=== PATIENT | male | born 1970 | race Caucasian/White ===

== ENCOUNTER 2021-05-13 16:29 | Outpatient (CLI) | payer BC, SELFPAY ==
--- NOTE | ~2021-05-13 | CT_ITS ---
EXAMINATION: CT abdomen pelvis wo con DATE: 05/13/2021 17:11 INDICATION: Hematuria TECHNIQUE: Computed tomography (CT) of the abdomen and pelvis was performed without intravenous contr ast. Automated exposure control and iterative reconstruction technique were employed. Exam dose: 179 9.67 mGy-cm total exam DLP. COMPARISON: None. FINDINGS: The lung bases are clear of infiltrate or consolidation. Normal heart size. No pericardial or pleural effusion. The liver, gallbladder, spleen, pancreas, bile ducts, pancreatic duct, and adrenal glands and kidneys are unremarkable on this limited examination given the loss of soft tissue detail due to morbid obes ity and the lack of intravenous contrast material. The urinary bladder is unremarkable. Mild prostate calcification. Diverticulosis of the colon. No apparent CT evidence of diverticulitis. No bowel obstruction or intra peritoneal free air is evident. No CT evidence of appendicitis is noted. Diffuse idiopathic skeletal hyperostosis of the thoracic spine. Severe degenerative disc disease at L5-S1 and mild to moderate degenerative disc disease at the remai jennifer lumbar interspaces. No suspicious osteolytic or osteoblastic lesions are noted.. IMPRESSION: Limited examination due to morbid obesity and lack of intravenous contrast material Diverticulosis of the colon Degenerative changes of the thoracic and lumbar spine Reviewed, dictated and finalized at [facility]. Reviewed, dictated and finalized at location B.
== END 2021-05-13 16:30 | disposition home or self-care (01) ==
LOC: ANHIMG 16:37
PROVIDERS: PCP Internal Medicine; Visit Provider Nurse Practitioner
DX: R31.9 Hematuria, unspecified (principal); K57.30 Diverticulosis of large intestine without perforation or abscess without bleeding; M51.34 Other intervertebral disc degeneration, thoracic region; M51.36 Other intervertebral disc degeneration, lumbar region
CPT/HCPCS: 74176

== ENCOUNTER 2021-10-07 14:36 | Outpatient (CLI) | payer BC, SELFPAY ==
--- NOTE | 2021-10-07 15:27 | ECG_ITS ---
Measurements Intervals [place] Rate: 80 P: AK: 0 QRS: 23 QRSD: 87 T: 54 QT: 336 QTc: 388 Interpretive Statements ATRIAL FLUTTER NONSPECIFIC ST ABNORMALITY- LATERAL LEADS ABNORMAL ECG Electronically Signed On 10-07-2021 15:48:20 NURSING CLINICAL DIRECTOR by Juan Hernández D.O.
[2021-10-07 15:42] LABS: Basophils Absolute Auto 0.1 K/mm3 (0.0-0.1); Basophils Percent Auto 0.7 % (0.2-1.2); Eosinophils Percent Auto 0.4 % (0-4.4); Hematocrit 44.8 % (42.0-52.0); Hemoglobin 16.1 g/dL (14.0-18.0); Immature Granulocyte Absolute 0.05 K/mm3 (0.00-0.031); Immature Granulocyte Percent A 0.5 % (0-0.5); Lymphocytes Absolute Auto 2.53 K/mm3 (0.9-3.2); Lymphocytes Percent Auto 27.7 % (18.3-44.2); Mean Corpuscular HGB Conc 35.9 g/dl (32-36); Mean Corpuscular Hemoglobin 31.5 pg (26-34); Mean Corpuscular Volume 87.7 fl (80-100); Monocytes Absolute Auto 0.7 K/mm3 (0.1-0.6); Monocytes Percent Auto 7.2 % (2.6-8.5); Neutrophils Absolute Auto 5.8 K/mm3 (1.3-6.7); Neutrophils Percent Auto 63.5 % (45.5-73.1); Platelet Count Result 286 k/mm3 (150-375); Red Blood Count 5.11 M/mm3 (4.6-6.20); Red Cell Distribution Width 12.1 % (11.5-14.5); White Blood Count 9.1 K/mm3 (4.5-10.0)
[2021-10-07 15:44] LABS: Alanine Aminotransferase 36 U/L (4-50); Albumin Level 4.5 g/dL (3.5-5.1); Alkaline Phosphatase 99 U/L (38-126); Anion Gap 15 mmol/L (8-16); Aspartate Amino Transferase 35 U/L (17-59); Bilirubin,Total 0.8 mg/dL (0.2-1.3); Blood Urea Nitrogen 11 mg/dL (9-20); Calcium 9.4 mg/dL (8.4-10.2); Carbon Dioxide 19 mmol/L (22-30); Chloride 104 mmol/L (98-107); Estimated Glomerular Filt Rate > 60; Glucose 99 mg/dL (65-110); Potassium 4.1 mmol/L (3.4-5.0); Sodium 138 mmol/L (137-145)
== END 2021-10-07 14:37 | disposition home or self-care (01) ==
PROVIDERS: PCP Internal Medicine; Visit Provider Nurse Practitioner
DX: Z01.818 Encounter for other preprocedural examination (principal); R94.31 Abnormal electrocardiogram [ECG] [EKG]
CPT/HCPCS: 36415; 80053; 85025; 93005

== ENCOUNTER 2022-02-28 10:20 | Outpatient (CLI) | payer BC, SELFPAY ==
[2022-02-28 11:13] LABS: Basophils Absolute Auto 0.1 K/mm3 (0.0-0.1); Basophils Percent Auto 0.7 % (0.2-1.2); Eosinophils Absolute Auto 0.1 K/mm3 (0-0.3); Eosinophils Percent Auto 0.6 % (0-4.4); Hematocrit 39.4 % (42.0-52.0); Immature Granulocyte Percent A 0.7 % (0-0.5); Lymphocytes Percent Auto 14.2 % (18.3-44.2); Mean Corpuscular HGB Conc 35.5 g/dl (32-36); Mean Corpuscular Hemoglobin 31.4 pg (26-34); Mean Corpuscular Volume 88.3 fl (80-100); Mean Platelet Volume 9.4 fl (7.4-10.4); Monocytes Absolute Auto 1.5 K/mm3 (0.1-0.6); Neutrophils Absolute Auto 9.8 K/mm3 (1.3-6.7); Neutrophils Percent Auto 72.8 % (45.5-73.1); Platelet Count Result 451 k/mm3 (150-375); Red Blood Count 4.46 M/mm3 (4.6-6.20); Red Cell Distribution Width 12.2 % (11.5-14.5); White Blood Count 13.4 K/mm3 (4.5-10.0)
[2022-02-28 11:26] LABS: Alanine Aminotransferase 24 U/L (4-50); Albumin Level 3.9 g/dL (3.5-5.1); Alkaline Phosphatase 80 U/L (38-126); Anion Gap 10 mmol/L (8-16); Aspartate Amino Transferase 32 U/L (17-59); Bilirubin,Total 1.1 mg/dL (0.2-1.3); Blood Urea Nitrogen 9 mg/dL (9-20); Calcium 8.8 mg/dL (8.4-10.2); Carbon Dioxide 26 mmol/L (22-30); Chloride 98 mmol/L (98-107); Estimated Glomerular Filt Rate > 60; Glucose 153 mg/dL (65-110); Magnesium 2.2 mg/dL (1.6-2.3); Potassium 3.5 mmol/L (3.4-5.0); Sodium 134 mmol/L (137-145)
[2022-02-28 12:56] LABS: Hemoglobin A1C 5.8 % (<5.7)
== END 2022-02-28 10:21 | disposition home or self-care (01) ==
LOC: ANHLAB 10:21
PROVIDERS: PCP Internal Medicine; Visit Provider Nurse Practitioner
DX: R25.2 Cramp and spasm (principal); R73.9 Hyperglycemia, unspecified
CPT/HCPCS: 36415; 80053; 83036; 83735; 84443; 85025

== ENCOUNTER 2022-03-01 06:37 | Outpatient (CLI) | payer BC, SELFPAY ==
[2022-03-01 07:16] LABS: Add Urine Microscopic? YES; Appearance Urine Cloudy (Clear); Bacteria Urine Trace /hpf; Bilirubin Urine Negative (Negative); Blood Urine Negative (Negative); Color Urine Amber (Yellow); Glucose Urine UA Negative (Negative); Ketones Urine Trace mg/dL (Negative); Leukocyte Esterase Ur 1+ LEU/UL (Negative); Mucus Urine Few /lpf; Nitrate Urine Negative (Negative); Protein Urine 1+ mg/dL (Negative); Specific Grav Ur 1.024 (1.001-1.035); Squamous Epithelial Cell Urine Few /hpf (Few); WBC Urine 31-50 /hpf
== END 2022-03-01 06:38 | disposition home or self-care (01) ==
PROVIDERS: PCP Internal Medicine; Visit Provider Nurse Practitioner
DX: R34 Anuria and oliguria (principal)
CPT/HCPCS: 81001; 87077; 87086; 87088

== ENCOUNTER 2022-03-05 17:09 | Emergency (ER) | payer BC, SELFPAY ==
--- NOTE | ~2022-03-05 | CT_ITS ---
EXAMINATION: CT brain wo con DATE: 03/05/2022 19:40 INDICATION: headache TECHNIQUE: Computed tomography (CT) of the head was performed without intravenous contrast. The mA wa s adjusted according to patient size. Iterative reconstruction technique was employed. The dose-lengt h product was 605.33 mGy-cm. COMPARISON: None FINDINGS: No acute intracranial hemorrhage or extra-axial fluid collection. No hydrocephalus, mass, or herniation. No acute ischemic infarct. Unremarkable dural venous sinus attenuation. No acute osseous abnormality. Retention cysts/polyps in the sphenoid and bilateral maxillary sinuses, otherwise the aerated spaces are clear. IMPRESSION: No acute intracranial process. Reviewed, dictated and finalized at location [facility].
--- NOTE | ~2022-03-05 | XR_ITS ---
EXAMINATION: XR chest 1V Exam Date/Time: 03/05/2022 19:35 CDT CLINICAL HISTORY: dyspnea Comparison: 03/08/12. RESULT: Lines, tubes, and devices: None. Lungs and pleura: Clear. Cardiomediastinal silhouette: Stable cardiomediastinal silhouette. Other: No acute osseous or upper abdominal finding. IMPRESSION: No acute cardiopulmonary process Reviewed, dictated and finalized at location K.
--- NOTE | ~2022-03-05 | CT_ITS ---
EXAMINATION: CTA chest PE abdomen pel DATE: 03/05/2022 21:14 INDICATION: elevated d dimer, sepsis without a source TECHNIQUE: Computed tomography angiography (CTA) of the chest abdomen and pelvis was performed with 1 00 mL Omnipaque-350 intravenous contrast timed to evaluate the pulmonary arteries. Coronal maximum in tensity projection 3D-reconstructions were created by the technologist. The dose-length product (DLP) was 2606.17 mGy-cm. Automated exposure control and iterative reconstruction technique were employed. COMPARISON: 05/13/21. FINDINGS: CHEST: Study quality: Degraded by late contrast bolus, beam hardening, and motion, especially in the left lo wer lobe, such that subsegmental and non-occlusive segmental emboli could be missed. Pulmonary arteries: No pulmonary emboli detected. Thoracic aorta: Normal. Lung parenchyma and airways: Clear. Thoracic inlet, axillae and chest wall: Unremarkable. Mediastinum: Normal. Heart and pericardium: Normal. Coronary artery calcifications: Absent. Pleura: Unremarkable. Bones: No acute osseous finding. ABDOMEN/PELVIS: Liver: Normal. Biliary/Gallbladder: Gallbladder is normal. No bile duct dilation. Spleen: Normal. Pancreas: No mass or duct dilation. Adrenals:No mass. Kidneys: No mass, stone, or hydronephrosis. GI tract: No small or large bowel dilation. Appendix not visualized. Mesentery/Peritoneum: No ascites, mass, or free air. Retroperitoneum: No mass. Pelvis: Pelvic organs are within normal limits. Soft Tissues: Soft tissues and body wall unremarkable. Bones: No acute osseous finding. IMPRESSION: Limited examination as described above, within those constraints no central or occlusive segmental em boli detected. No acute process detected in the chest, abdomen, or pelvis. Reviewed, dictated and finalized at location K. IMPRESSION: Limited examination as described above, within those constraints no central or occlusive segmental emboli detected. No acute process detected in the chest, ab domen, or pelvis.
[2022-03-05 17:26] VITALS: BP 159/71; PULSE 106; RESP 20; TEMP 36.4; O2SAT 98
--- NOTE | 2022-03-05 19:11 | ED.GENADULT ---
HPI - General Adult General Chief complaint: Unspecified Stated complaint: headache, fever leg pain Time Seen by Provider: 03/05/22 19:10 Source: patient and family Mode of arrival: ambulatory Limitations: no limitations History of Present Illness HPI narrative: The patient is a 51-year-old male with a history of gastric sleeve in October 2021, over 100 pound weight loss in that time, hypertension, chronic anticoagulation, presenting to the emergency department for evaluation of numerous symptoms. Patient states he began feeling unwell 2 weeks ago. Patient reports he has had daily, intermittent headaches which at times are sharp in nature and can begin suddenly. Currently, headache is aching in nature and began in his lower head radiating to the forehead. Patient reports initial blurry vision which is since resolved. Reports nausea without vomiting. Denies facial droop, difficulty with speech. No focal weakness or numbness in the upper or lower extremities, no dizziness, patient has had no difficulty with ambulation. Patient states he has been taking Tylenol every 6 hours for headache pain and low-grade fever. Patient states he has had fever up to 101 Fahrenheit for which she has been taking Tylenol. Patient reports myalgias, with diffuse muscle aches. He reports muscle cramping. He denies current chest pain, abdominal pain. At times he does report shortness of breath that worsens with exertion. He denies lower extremity swelling, redness. He has been compliant with his anticoagulation. He denies pleuritic pain. Denies recent long car or air travel. Denies recent surgery or immobility. Patient denies diarrhea. He reports that initially he was having some urinary hesitation for which she was diagnosed with urinary tract infection and placed on antibiotics at his primary care physician's office. Patient states that urination has improved and he denies any current dysuria or hematuria. Patient's publications writer office told him to discontinue his chlorthalidone given his symptoms. Other than that, no recent medication changes aside from the antibiotic. Patient reports history of symptomatic COVID infection in 2019 for which she did not require hospitalization. He denies recent sick contacts. He reports mild rhinorrhea, denies any significant congestion, sore throat. Related Data Home Medications Medication Instructions Recorded Confirmed cetirizine 10 mg tablet 10 mg PO DAILY PRN 02/28/22 02/28/22 chlorthalidone 25 mg tablet 25 mg PO DAILY 02/28/22 02/28/22 metoprolol tartrate 37.5 mg tablet 37.5 mg PO BID 02/28/22 02/28/22 rivaroxaban 20 mg tablet 20 mg PO DAILY 02/28/22 02/28/22 Allergies Allergy/AdvReac Type Severity Reaction Status Date / Time No Known Allergies Allergy Verified 11/20/20 17:21 Review of Systems Review of Systems: CONSTITUTIONAL: Reports headache, fever, chills EYES: Reports blurry vision at times, denies eye pain ENT: Reports mild rhinorrhea, congestion, denies sore throat or otalgia CARDIOVASCULAR: Denies chest pain, palpitations, or edema. RESPIRATORY: Reports dry cough, reports shortness of breath with exertion, denies hemoptysis GASTROINTESTINAL: Denies abdominal pain, reports nausea without vomiting or diarrhea GENITOURINARY: Denies dysuria or hematuria. SKIN: Denies rash or itching. MUSCULOSKELETAL: Reports myalgias without focal back pain or joint pain NEUROLOGIC: Reports headache without numbness or weakness PMF Past Medical History Medical History Allergies Surgical History Surgical History H/O gastric sleeve 10/16/2021 History of hernia repair x2 2004 History of vasectomy Family History Family History Father Diabetes mellitus Mother Rheumatoid arthritis Grandparent Carcinoma of colon Grandparent Lung can
--- NOTE | 2022-03-05 19:14 | ECG_ITS ---
Measurements Intervals [place] Rate: 98 P: -24 NV: 136 QRS: 16 QRSD: 102 T: -25 QT: 334 QTc: 427 Interpretive Statements SINUS RHYTHM ST-T WAVE ABNORMALITY IN ANTEROLATERAL LEADS- CONSIDER ISCHEMIA BASELINE ARTIFACT- I, II, AVR, AVL, AVF, V3 ABNORMAL ECG Electronically Signed On 03-06-2022 6:31:05 CDT by Juan Hernández D.O.
[2022-03-05 19:43] LABS: Basophils Absolute Auto 0.1 K/mm3 (0.0-0.1); Basophils Percent Auto 0.7 % (0.2-1.2); Eosinophils Absolute Auto 0.1 K/mm3 (0-0.3); Eosinophils Percent Auto 1.1 % (0-4.4); Hematocrit 41.8 % (42.0-52.0); Hemoglobin 14.6 g/dL (14.0-18.0); Immature Granulocyte Absolute 0.24 K/mm3 (0.00-0.031); Immature Granulocyte Percent A 1.8 % (0-0.5); Lymphocytes Percent Auto 14.4 % (18.3-44.2); Mean Corpuscular HGB Conc 34.9 g/dl (32-36); Mean Corpuscular Hemoglobin 31.3 pg (26-34); Mean Corpuscular Volume 89.7 fl (80-100); Mean Platelet Volume 8.8 fl (7.4-10.4); Monocytes Absolute Auto 1.1 K/mm3 (0.1-0.6); Monocytes Percent Auto 8.5 % (2.6-8.5); Neutrophils Absolute Auto 9.7 K/mm3 (1.3-6.7); Neutrophils Percent Auto 73.5 % (45.5-73.1); Platelet Count Result 535 k/mm3 (150-375); Red Blood Count 4.66 M/mm3 (4.6-6.20); Red Cell Distribution Width 12.4 % (11.5-14.5); White Blood Count 13.2 K/mm3 (4.5-10.0)
[2022-03-05 19:52] LABS: Alanine Aminotransferase 34 U/L (4-50); Albumin Level 3.7 g/dL (3.5-5.1); Alkaline Phosphatase 98 U/L (38-126); Anion Gap 11 mmol/L (8-16); Aspartate Amino Transferase 49 U/L (17-59); Bilirubin,Total 0.6 mg/dL (0.2-1.3); Blood Urea Nitrogen 10 mg/dL (9-20); Calcium 8.9 mg/dL (8.4-10.2); Carbon Dioxide 25 mmol/L (22-30); Chloride 99 mmol/L (98-107); Estimated CRCL calculation 225 ml/min; Estimated Glomerular Filt Rate > 60; Glucose 151 mg/dL (65-110); Potassium 3.9 mmol/L (3.4-5.0); Sodium 135 mmol/L (137-145)
[2022-03-05 19:54] LABS: INR 1.8
[2022-03-05 19:55] LABS: Partial Thromboplastin Time 45.1 SECONDS (22.3-36.8)
[2022-03-05 19:58] LABS: Creatine Kinase 29 U/L (55-170)
[2022-03-05 20:11] LABS: D Dimer 0.95 ug/mL (<0.48)
[2022-03-05 20:12] LABS: Erythrocyte Sedimentation Rate 42 mm/hr (0-20)
[2022-03-05 20:20] LABS: CRP 25.4 mg/dL (<1.0); NT Pro B Type Natriuretic Pept 376 pg/mL (5-100); Troponin I < 0.012 ng/mL (0.000-0.034)
[2022-03-05] MEDS: ONDANSETRON INJ 4 MG/2 ML VIAL IV PUSH (20:42)
[2022-03-05] MEDS: METOCLOPRAMIDE HCL INJ 10 MG/2 ML VIAL 5 MG IV PUSH (20:43)
[2022-03-05] MEDS: SODIUM CHLORIDE 0.9% IV 1,000 ML 999 ML IV CONT (20:44)
[2022-03-05 21:02] LABS: Appearance Urine Clear (Clear); Bilirubin Urine 1+ (Negative); Blood Urine Negative (Negative); Color Urine Yellow (Yellow); Glucose Urine UA Negative (Negative); Ketones Urine Trace mg/dL (Negative); Leukocyte Esterase Ur Negative LEU/UL (Negative); Nitrate Urine Negative (Negative); Protein Urine Trace mg/dL (Negative); Urobilinogen Urine >=8.0 mg/dL (<2.0)
[2022-03-05 21:09] LABS: Lactic Acid Reflex 1.2 mmol/L (0.7-2.0)
[2022-03-05 21:10] LABS: Mucus Urine Moderate /lpf; Squamous Epithelial Cell Urine Moderate /hpf (Few); WBC Urine 0-3 /hpf
[2022-03-05 21:12] LABS: Add Urine Microscopic? YES
[2022-03-05 22:43] LABS: SARS-CoV-2 RNA PCR Negative
[2022-03-05 23:31] LABS: Troponin I < 0.012 ng/mL (0.000-0.034)
[2022-03-06 00:06] LABS: Monoscreen Negative (Negative); Negative Monotest Control Negative (Negative); Positive Monotest Control Positive (Positive)
== END 2022-03-06 00:04 | disposition home or self-care (01) ==
PROVIDERS: Emergency Provider Emergency Medicine; PCP Internal Medicine
DX: R51.9 Headache, unspecified (principal); M79.10 Myalgia, unspecified site; R79.82 Elevated C-reactive protein (CRP); Z20.822 Contact with and (suspected) exposure to COVID-19; I10 Essential (primary) hypertension; Z98.84 Bariatric surgery status; Z86.16 Personal history of COVID-19; Z79.01 Long term (current) use of anticoagulants; R94.31 Abnormal electrocardiogram [ECG] [EKG]
CPT/HCPCS: 36415; 70450; 71045; 71275; 74177; 80053; 81001; 82550; 83605; 83880; 84443; 84484; 85025; 85380; 85610; 85652; 85730; 86140; 86308; 87040; 87081; 87804; 87880; 93005; 96361; 96374; 96375; 99284; C9803; J1100; J2405; J2765; J7030; Q9967; U0003; U0005

== ENCOUNTER 2022-03-15 04:20 | Emergency (ER) | payer BC, SELFPAY ==
--- NOTE | ~2022-03-15 | XR_ITS ---
XR chest 1V portable DATE: 03/15/2022 05:14 INDICATION: Chest pressure TECHNIQUE: Portable upright AP chest on 03/15/2022 at 0509 hours COMPARISON: 03/2022 CTA chest FINDINGS: Normal heart size. No hilar or mediastinal enlargement. No pulmonary infiltrate or consolid ation, pleural effusion or pulmonary vascular congestion or pneumothorax. IMPRESSION: No active cardiopulmonary disease Reviewed, dictated and finalized at location A.
--- NOTE | 2022-03-15 04:27 | ECG_ITS ---
Measurements Intervals [place] Rate: 79 P: 95 WV: 146 QRS: 26 QRSD: 89 T: -23 QT: 334 QTc: 383 Interpretive Statements SINUS RHYTHM VENTRICULAR PREMATURE COMPLEXES BORDERLINE ST-T WAVE ABNORMALITY- ANTEROLAT/INF LEADS BASELINE ARTIFACT- I, II, AVR BORDERLINE ECG Electronically Signed On 03-15-2022 6:44:26 CDT by Juan Hernández D.O.
[2022-03-15 04:34] VITALS: BP 154/95; PULSE 79; RESP 18; TEMP 35.7; O2SAT 100
[2022-03-15 05:00] LABS: Basophils Absolute Auto 0.1 K/mm3 (0.0-0.1); Eosinophils Absolute Auto 0.1 K/mm3 (0-0.3); Eosinophils Percent Auto 1.2 % (0-4.4); Hematocrit 38.4 % (42.0-52.0); Hemoglobin 12.9 g/dL (14.0-18.0); Immature Granulocyte Absolute 0.13 K/mm3 (0.00-0.031); Immature Granulocyte Percent A 1.4 % (0-0.5); Lymphocytes Percent Auto 31.5 % (18.3-44.2); Mean Corpuscular HGB Conc 33.6 g/dl (32-36); Mean Corpuscular Hemoglobin 30.5 pg (26-34); Mean Corpuscular Volume 90.8 fl (80-100); Monocytes Absolute Auto 0.8 K/mm3 (0.1-0.6); Monocytes Percent Auto 8.6 % (2.6-8.5); Neutrophils Absolute Auto 5.4 K/mm3 (1.3-6.7); Neutrophils Percent Auto 56.3 % (45.5-73.1); Platelet Count Result 417 k/mm3 (150-375); Red Blood Count 4.23 M/mm3 (4.6-6.20); Red Cell Distribution Width 12.9 % (11.5-14.5); White Blood Count 9.5 K/mm3 (4.5-10.0)
[2022-03-15 05:10] LABS: Anion Gap 7 mmol/L (8-16); Blood Urea Nitrogen 11 mg/dL (9-20); Calcium 8.7 mg/dL (8.4-10.2); Carbon Dioxide 25 mmol/L (22-30); Chloride 105 mmol/L (98-107); Estimated CRCL calculation 265 ml/min; Estimated Glomerular Filt Rate > 60; Glucose 130 mg/dL (65-110); Potassium 3.7 mmol/L (3.4-5.0); Sodium 137 mmol/L (137-145)
[2022-03-15 05:22] LABS: Troponin I < 0.012 ng/mL (0.000-0.034)
--- NOTE | 2022-03-15 05:33 | PC.NURSE ---
Called lab to add magnesium on, spoke with Brissa.
[2022-03-15 05:44] LABS: Magnesium 2.3 mg/dL (1.6-2.3)
--- NOTE | 2022-03-15 05:52 | ED.ARRPALP ---
HPI - Arrhythmia/Palpitations General Chief Complaint: Arrhythmia/Palpitations Stated Complaint: chest pressure/palpitations Time Seen by Provider: 03/15/22 04:51 History of Present Illness HPI narrative: 51-year-old male with history of atrial fibrillation requiring cardioversion presents here with sensation of palpitations, he noticed on his watch that his heart rate seem to be fluctuating, so he came in here. Endorses a feeling of chest tightness/fluttering, no real chest pain, difficulty breathing, he has had a headache for which he was seen recently but denies any other symptoms today. No nausea or vomiting, no diaphoresis. Related Data Home Medications Medication Instructions Recorded Confirmed cetirizine 10 mg tablet 10 mg PO DAILY PRN 02/28/22 03/11/22 metoprolol tartrate 37.5 mg tablet 37.5 mg PO BID 02/28/22 03/11/22 rivaroxaban 20 mg tablet 20 mg PO DAILY 02/28/22 03/11/22 Allergies Allergy/AdvReac Type Severity Reaction Status Date / Time No Known Allergies Allergy Verified 03/15/22 04:37 Review of Systems Review of Systems: CONST: No fever. HEENT: No sore throat C/V: Palpitations RESP: No difficulty breathing GI: No nausea, vomiting : No dysuria. M/S: No lower extremity edema SKIN: No rash. NEURO: [No headache or focal numbness or weakness] PSYCH: [No depression] [facility] Past Medical History Medical History Allergies Atrial fibrillation Surgical History Surgical History H/O gastric sleeve 10/16/2021 History of hernia repair x2 1989, 2004 History of vasectomy Family History Family History Father Diabetes mellitus Mother Rheumatoid arthritis Grandparent Carcinoma of colon Grandparent Lung cancer Grandparent Leukemia Cerebrovascular accident Heart attack Sibling Diabetes mellitus Social History Social History Smoking status: Never smoker Alcohol intake: current Drinks per week: 2 Substance use: never Exam Narrative: EXAMINATION OF ORGAN SYSTEMS/BODY AREAS: Constitutional: Vital signs per nursing GENERAL:[No acute distress, non-toxic appearing.] HEAD: Normal with no signs of head trauma. EYES: EOMI, conjunctiva normal ENT: Hearing grossly intact LUNGS: Nonlabored breathing. HEART: [Regular rate and rhythm] with occasional PVCs ABD: [Soft], nondistended EXT: Normal range of motion, no swelling SKIN: [No rashes or lesions.] NEURO: [Alert and oriented x 3. No gross focal sensory or strength deficits.] PSYCH: Normal affect Course Course Emergency Course: 51-year-old male history of A. fib presenting with sensation of palpitations, exam here normal cardiopulmonary exam, EKG - 12-Lead: Performed at 0431. Interpreted by me. [Sinus rhythm] with frequent PVCs. Rate [79]. [Normal] axis. MO-interval 146. QRS duration 89. QTc [normal]. [No ST segment elevation or depression]. [T-wave normal]. Impression: No EKG evidence of acute ischemia or dysrhythmia. I will obtain basic labs to check electrolytes, these are normal, he is continue to be in normal sinus here on monitors with PVCs. Patient is already on anticoagulation and metoprolol, I therefore do not feel any further prescriptions needed at this time, he should follow-up with his armored vehicle officer and return for any further issues. Vital Signs Vital signs: Vital Signs Temperature 96.3 F L 03/15/22 04:34 Pulse Rate 79 03/15/22 04:34 Respiratory Rate 18 03/15/22 04:34 Blood Pressure 154/95 H 03/15/22 04:34 Pulse Oximetry 100 03/15/22 04:34 Temperature 96.3 F L 03/15/22 04:34 Pulse Rate 79 03/15/22 04:34 Respiratory Rate 18 03/15/22 04:34 Blood Pressure 154/95 H 03/15/22 04:34 Pulse Oximetry 100 03/15/22 04:34 MDM - Arrhythmia/Palpitations Lab Data Result diagrams: 03/02
[2022-03-15 06:15] VITALS: BP 135/68; PULSE 64; RESP 14; O2SAT 100
== END 2022-03-15 06:16 | disposition home or self-care (01) ==
PROVIDERS: Emergency Provider Emergency Medicine; PCP Internal Medicine
DX: R00.2 Palpitations (principal); I49.3 Ventricular premature depolarization; I48.91 Unspecified atrial fibrillation; Z98.84 Bariatric surgery status; Z79.01 Long term (current) use of anticoagulants; R94.31 Abnormal electrocardiogram [ECG] [EKG]
CPT/HCPCS: 36415; 71045; 80048; 83735; 84484; 85025; 93005; 99284

== ENCOUNTER 2022-03-19 10:34 | Outpatient (CLI) | payer BC, SELFPAY ==
--- NOTE | ~2022-03-19 | MR_ITS ---
EXAMINATION: MR brain/brain stem wo/w con DATE: 03/19/2022 11:51 INDICATION: Headache, unspecified. TECHNIQUE: Magnetic resonance imaging (MRI) of the brain and brainstem was performed without and with 20 mL MultiHance intravenous contrast. COMPARISON: Head CT 03/05/2022 FINDINGS: There are scattered areas of nonspecific increased T2-weighted signal intensity in the cere bral white matter and alma. There is no intracranial hemorrhage, acute infarction, or abnormal intrac ranial mass lesion. The ventricles are normal in size. There is mild mucosal thickening in the maxill ken sinuses. The mastoid air cells are normal. There are no pathologically enlarged lymph nodes. IMPRESSION: 1. Mild nonspecific cerebral white matter disease and pontine disease, which likely represents chroni c small vessel ischemic disease. Reviewed, dictated and finalized at location B. IMPRESSION: 1. Mild nonspecific cerebral white matter disease and pontine disease, which katheryn peterson represents chronic small vessel ischemic disease.
== END 2022-03-19 10:35 | disposition home or self-care (01) ==
PROVIDERS: PCP Internal Medicine; Visit Provider Internal Medicine
DX: H02.401 Unspecified ptosis of right eyelid (principal); R50.9 Fever, unspecified; R51.9 Headache, unspecified; R93.0 Abnormal findings on diagnostic imaging of skull and head, not elsewhere classified
CPT/HCPCS: 70553; A9577

== ENCOUNTER 2022-04-05 07:00 | Outpatient (CLI) | payer BC, SELFPAY ==
[2022-04-05 07:56] LABS: Appearance Urine Clear (Clear); Bilirubin Urine Negative (Negative); Blood Urine Negative (Negative); Color Urine Yellow (Yellow); Glucose Urine UA Negative (Negative); Ketones Urine Negative (Negative); Leukocyte Esterase Ur Negative LEU/UL (Negative); Nitrate Urine Negative (Negative); Protein Urine Negative (Negative); Urobilinogen Urine 0.2 mg/dL (<2.0)
[2022-04-05 08:00] LABS: RBC Urine 0-2 /hpf (0-2); Squamous Epithelial Cell Urine Few /hpf (Few); WBC Urine 0-3 /hpf
[2022-04-05 08:01] LABS: Add Urine Microscopic? YES
== END 2022-04-05 07:01 | disposition home or self-care (01) ==
LOC: ANHLAB 07:01
PROVIDERS: PCP Internal Medicine; Visit Provider Nurse Practitioner
DX: N39.0 Urinary tract infection, site not specified (principal)
CPT/HCPCS: 81001

== ENCOUNTER 2022-05-13 06:37 | Outpatient (CLI) | payer BC, SELFPAY ==
--- NOTE | ~2022-05-13 | MR_ITS ---
EXAMINATION: MR cervical spine wo/w con DATE: 05/13/2022 07:34 INDICATION: Headache around the eyes TECHNIQUE: Magnetic resonance imaging (MRI) of the cervical spine was performed without and with 20 m L Multihance intravenous contrast. Sequences included sagittal T2-weighted FSE, sagittal T2-weighted FS FSE, sagittal T1-weighted FSE, axial T2-weighted FSE, and axial T1-weighted SE. Postcontrast seque nces included sagittal T1-weighted FS FSE, and axial T1-weighted FS SE. COMPARISON: None FINDINGS: Straightening of the normal cervical lordosis. Vertebral body heights are normal. Bone marrow signa l intensity is normal. Moderate disc height loss at C5-C6 and T2-3. Mild disc height loss at C3-C4 an d C4-C5 and T1-T2. There is subtle mild increased cord signal at C5-C6. No abnormally enhancing cord lesions. Vertical soft tissues are unremarkable. The following disc levels are specifically discussed : C2-C3: The disc does not extend beyond the endplate margin. There is mild bilateral uncovertebral jaden nt osteoarthritis. There is mild right and mild to moderate left facet joint osteoarthritis. There is no neural foraminal stenosis. There is no central canal stenosis. C3-C4: Annular fissure and small central disc protrusion which contacts but does not deform the ventr al surface of the cord. There is right and moderate left uncovertebral joint osteoarthritis. There is mild bilateral facet joint osteoarthritis. There is mild bilateral neural foraminal stenosis. There is mild central canal stenosis. C4-C5: Annular fissure and right paracentral disc protrusion which indents the ventral surface of the cord. There is mild bilateral uncovertebral joint osteoarthritis. There is minimal bilateral facet j oint osteoarthritis. There is mild bilateral neural foraminal stenosis. There is mild central canal s tenosis. C5-C6: Annular fissure with large disc extrusion associated with a large posterior disc osteophyte co mplex beginning in the right paracentral region and extending to the left foraminal zone. There is mo derate left-sided predominant central canal stenosis at the central canal measuring 7 mm AP in the mi d sagittal plane. There is moderate right and severe left uncovertebral joint osteoarthritis. There i s mild to moderate bilateral facet joint osteoarthritis. There is moderate to severe bilateral neural foraminal stenosis. C6-C7: Disc is mildly bulging with superimposed right paracentral annular fissure and disc extrusion which slightly indents the right ventral surface of the cord. There is mild bilateral uncovertebral j oint osteoarthritis. There is mild bilateral facet joint osteoarthritis. There is mild bilateral neur al foraminal stenosis. There is mild right-sided central canal stenosis. C7-T1: Annular fissure and tiny central disc extrusion with disc material extending 3 mm cephalad to the level of the inferior endplate of C7. There is mild left uncovertebral joint osteoarthritis. Ther e is mild to moderate bilateral facet joint osteoarthritis. There is no neural foraminal stenosis. Th ere is no central canal stenosis. IMPRESSION: 1. Moderate cervical spondylosis most notable for a large left side predominant posterior disc osteop hyte complex at C5-C6 resulting in moderate central canal stenosis with subtle increased cord T2 sign al consistent with compressive myelopathy and moderate to severe bilateral neural foraminal stenosis. Reviewed, dictated and finalized at location B. IMPRESSION: 1. Moderate cervical spondylosis most notable for a large left side predominant posterior disc osteophyte complex at C5-C6 resulting in moderate central canal stenosis with subtle increased cord T2 signal consistent with compressive myel opathy and moderate to neeru
[2022-05-13 07:05] LABS: Estimated Glomerular Filt Rate > 60
== END 2022-05-13 06:38 | disposition home or self-care (01) ==
PROVIDERS: PCP Internal Medicine; Visit Provider Psychiatry & Neurology Neurology
DX: R51.9 Headache, unspecified (principal); M47.892 Other spondylosis, cervical region
CPT/HCPCS: 72156; A9577

== ENCOUNTER 2023-04-13 10:20 | Outpatient (CLI) | payer OTHER, SELFPAY ==
[2023-04-13 14:24] LABS: Basophils Absolute Auto 0.1 K/mm3 (0.0-0.1); Basophils Percent Auto 1.4 % (0.2-1.2); Eosinophils Absolute Auto 0.1 K/mm3 (0-0.3); Eosinophils Percent Auto 0.6 % (0-4.4); Hematocrit 43.9 % (42.0-52.0); Hemoglobin 15.1 g/dL (14.0-18.0); Immature Granulocyte Absolute 0.03 K/mm3 (0.00-0.031); Immature Granulocyte Percent A 0.4 % (0-0.5); Lymphocytes Absolute Auto 2.28 K/mm3 (0.9-3.2); Lymphocytes Percent Auto 29.6 % (18.3-44.2); Mean Corpuscular HGB Conc 34.4 g/dl (32-36); Mean Corpuscular Hemoglobin 32.6 pg (26-34); Mean Corpuscular Volume 94.8 fl (80-100); Monocytes Absolute Auto 0.5 K/mm3 (0.1-0.6); Monocytes Percent Auto 6.7 % (2.6-8.5); Neutrophils Absolute Auto 4.7 K/mm3 (1.3-6.7); Neutrophils Percent Auto 61.3 % (45.5-73.1); Platelet Count Result 304 k/mm3 (150-375); Red Blood Count 4.63 M/mm3 (4.6-6.20); Red Cell Distribution Width 12.8 % (11.5-14.5); White Blood Count 7.7 K/mm3 (4.5-10.0)
[2023-04-13 14:28] LABS: Appearance Urine Clear (Clear); Bilirubin Urine Negative (Negative); Blood Urine Negative (Negative); Color Urine Yellow (Yellow); Glucose Urine UA Negative (Negative); Ketones Urine Negative (Negative); Leukocyte Esterase Ur Negative LEU/UL (Negative); Nitrate Urine Negative (Negative); Protein Urine Negative (Negative); Specific Grav Ur 1.015 (1.001-1.035)
[2023-04-13 14:40] LABS: Add Urine Microscopic? NO
== END 2023-04-13 10:21 | disposition home or self-care (01) ==
LOC: ANHGOSHLAB 10:21
PROVIDERS: Nurse Practitioner; PCP Internal Medicine; Visit Provider Nurse Practitioner
DX: R79.89 Other specified abnormal findings of blood chemistry (principal); D72.829 Elevated white blood cell count, unspecified; R34 Anuria and oliguria; R31.9 Hematuria, unspecified; N39.0 Urinary tract infection, site not specified
CPT/HCPCS: 36415; 81003; 85025

== ENCOUNTER 2023-04-18 08:24 | Emergency (ER) | payer OTHER, SELFPAY ==
[2023-04-18 08:51] VITALS: BP 135/95; PULSE 54; RESP 16; TEMP 36.4; O2SAT 100
--- NOTE | 2023-04-18 09:06 | ED.MALEGU ---
HPI - Male Genitourinary General Chief complaint: Urogenital-Male Stated complaint: UTI SYMPTOMS Time Seen by Provider: 04/18/23 09:07 Source: patient, RN notes reviewed and old records reviewed Mode of arrival: ambulatory Limitations: no limitations History of Present Illness HPI Narrative: 52 year old male presents to [facility] care with complaints of urgency,frequency, burning with urination since Thursday 3 days ago. Patient reports also he noted some hematuria yesterday. Patient reports that he had had a kidney stone that he passed about a year and ago any also has previous urinary tract infection about 1 year ago. Patient reports history of A Fib is on amiodarone and does take Xarelto also.He states that he has some low back pain and also some lower abdominal pressure. MD Complaint: dysuria and other (small amount of hematuria yesterday) Onset (ago): day(s) (3 days ago) Severity: mild Quality: burning (with urination) and other (lower abdominal pressure) Related Data Home Medications Medication Instructions Recorded Confirmed cetirizine 10 mg tablet (Zyrtec) 10 mg PO DAILY PRN allergies 02/28/22 04/18/23 rivaroxaban 20 mg tablet (Xarelto) 20 mg PO DAILY 02/28/22 04/18/23 amiodarone 400 mg tablet 400 mg PO DAILY 04/10/23 04/18/23 Allergies Allergy/AdvReac Type Severity Reaction Status Date / Time No Known Allergies Allergy Verified 04/18/23 08:44 Review of Systems Review of Systems: CONSTITUTIONAL: Denies fever, chills, or sweats. CARDIOVASCULAR: Denies chest pain, palpitations, or edema. RESPIRATORY: Denies cough or dyspnea. GASTROINTESTINAL: Reports lower abdominal pressure, no nausea, vomiting, or diarrhea. GENITOURINARY: Reports dysuria, frequency, urgency. reports some lower back pain and hematuria. SKIN: Denies rash or itching. MUSCULOSKELETAL:Reports lower back pain or myalgia. Denies CVA tenderness on palpation NEUROLOGIC: Denies headache All systems reviewed & are unremarkable except as noted in HPI and below PMFSH Past Medical History Medical History (Updated 04/18/23 @ 22:00 by Kelsea Luke NP) Allergies Atrial fibrillation Kidney stone UTI (urinary tract infection) Surgical History Surgical History H/O gastric sleeve 10/16/2021 History of hernia repair x2 1989, 2004 History of vasectomy Family History Family History Father Diabetes mellitus Mother Rheumatoid arthritis Grandparent Carcinoma of colon Grandparent Lung cancer Grandparent Leukemia Cerebrovascular accident Heart attack Sibling Diabetes mellitus Social History Social History Smoking status: Never smoker Alcohol intake: current Drinks per week: 2 Substance use: never Lack of Transportation: No Lack of Food: Sometimes True Current Housing: I Have Housing Concerned About Future Housing: No Difficulty Paying Gas/Electric Bills: No Difficulty Paying for Meds: No Currently Unemployed: No Education: Associate Degree Difficulty w/ Childcare or Family Care: No Comments At time of signature, agree with nursing past medical, surgical, social and family history. There is no relevant family history pertinent to the presenting complaint Exam Narrative: GENERAL: Well-appearing, well-nourished, has lost 170 lbs since gastric sleeve, and in no acute distress. HEAD: Normocephalic, atraumatic. NECK: Supple.no lymphadenopathy CHEST: Clear to auscultation. No respiratory distress.SAO2 100% on room air HEART: Regular rate and rhythm. No murmur heard. Normal peripheral pulses. ABDOMEN: Soft, nontender, nondistended, normal active bowel sounds. No CVA tenderness EXTREMITIES: Normal range of motion. No edema. SKIN: Warm, dry, no rash. NEURO: No focal deficits. Alert and oriented x3. Course Course Emergency Course:
== END 2023-04-18 09:32 | disposition home or self-care (01) ==
PROVIDERS: Emergency Provider Registered Nurse; PCP Internal Medicine
DX: N39.0 Urinary tract infection, site not specified (principal); I48.91 Unspecified atrial fibrillation
CPT/HCPCS: 81003; 87077; 87086; 87186; 99213; G0463

== ENCOUNTER 2024-05-02 12:31 | Outpatient (CLI) | payer OTHER, SELFPAY ==
[2024-05-02 20:02] LABS: Appearance Urine Clear (Clear); Bilirubin Urine Negative (Negative); Blood Urine Negative (Negative); Color Urine Dark Yellow (Yellow); Glucose Urine UA Negative (Negative); Ketones Urine Negative (Negative); Leukocyte Esterase Ur Negative LEU/UL (Negative); Nitrate Urine Negative (Negative); Protein Urine Negative (Negative); Specific Grav Ur 1.014 (1.001-1.035); pH Urine 6.5 (5.0-9.0)
[2024-05-02 20:05] LABS: Add Urine Microscopic? NO
== END 2024-05-02 12:32 | disposition home or self-care (01) ==
LOC: ANHGOSHLAB 12:33
PROVIDERS: PCP Internal Medicine; Visit Provider Nurse Practitioner
DX: N39.0 Urinary tract infection, site not specified (principal)
CPT/HCPCS: 81003

== ENCOUNTER 2024-10-07 18:40 | Emergency (ER) | payer OTHER, SELFPAY ==
--- NOTE | 2024-10-07 18:46 | ED.EYEPROB ---
HPI - Eye Problem General Chief complaint: Eye Problems Stated complaint: Left eye stye Time Seen by Provider: 10/07/24 18:49 Source: patient Mode of arrival: ambulatory Limitations: no limitations History of Present Illness HPI Narrative: Clay is a 54-year-old male patient presenting to the clinic today with complaints of possible stye in his left eye. He reports he has had left eye swelling and pain x2 weeks. Seen a [facility] and prescribed ofloxacin for what was possibly conjunctivitis. He reports that his symptoms have not improved and this has prompted him to come in to the clinic today. He reports that the left upper eyelid is swollen and painful to touch and he does report some discharge coming from the eye when he wakes up in the morning. Thinks he may have a stye. He denies any fever, chills, or body aches. No visual changes Related Data Home Medications Medication Instructions Recorded Confirmed aspirin 325 mg tablet,delayed 325 mg PO DAILY 05/27/24 10/07/24 release Allergies Allergy/AdvReac Type Severity Reaction Status Date / Time No Known Allergies Allergy Verified 10/07/24 18:58 Review of Systems Review of Systems: Pertinent positives per HPI. Patient denies any fever, chills, rash, headache, visual changes, dizziness, cough, runny nose, sore throat, shortness of breath, chest pain, palpitations, nausea, vomiting, diarrhea, constipation, abdominal pain, or any urinary issues. [facility] Past Medical History Medical History Allergies Atrial fibrillation Kidney stone UTI (urinary tract infection) Surgical History Surgical History H/O gastric sleeve 10/16/2021 History of hernia repair x2 1989, 2004 History of vasectomy Family History Family History Father Diabetes mellitus Mother Rheumatoid arthritis Grandparent Carcinoma of colon Grandparent Lung cancer Grandparent Leukemia Cerebrovascular accident Heart attack Sibling Diabetes mellitus Social History Social History Smoking status: Never smoker Alcohol intake: current Drinks per week: 2 Substance use: never Lack of Transportation: No Lack of Food: Sometimes True Current Housing: I Have Housing Concerned About Future Housing: No Difficulty Paying Gas/Electric Bills: No Difficulty Paying for Meds: No Currently Unemployed: No Education: Associate Degree Difficulty w/ Childcare or Family Care: No Comments At the time of my signature, I reviewed and agree with the nursing past medical, surgical, social, and family history. There is no relevant family history pertinent to the patient complaint. Exam Narrative: General: Well-developed, well nourished, in no apparent distress Head: Normocephalic, atraumatic Eyes: Pupils equally round and reactive to light bilaterally, EOM intact, sclera and conjunctive clear, no discharge, right lids normal, left upper eyelid red, tender, and swollen with firm 1cm mass in the subcutaneous tissue, no surrounding periorbital cellulitis or tenderness to palpation over the orbit except for the eyelid Ears: TMs intact and clear, ear canals clear, no drainage, grossly hearing normal. Nose: Nares patent, no discharge, no inflammation, no sinus tenderness. Mouth: Oropharynx without lesions or masses, good dentition, MMM. Neck: Supple, trachea midline, no enlargement of anterior or posterior cervical nodes, no thyroid masses or goiter palpable. Cardio: Regular rate and rhythm, s1 and s2 normal, no murmur appreciated. Resp: Clear to auscultation bilaterally anteriorly and posteriorly, no rhonchi, rales, wheezing or rubs Course Course Emergency Course: Portions of this record may have been created with voice recognition software. Level of Care: Express Care Visit Vital Signs Vital signs: Vital signs reviewed MDM - Eye Problem MDM Narrative Medical decision making narrative: At the time of visit patient is resting comfortably on the exam table. Patient appears to be nontoxic. Plan: I suspect patient has a left upper eyelid infection-possible beginning of abscess versus mass. Will switch patient's eyedrops to polymyxin trimethoprim eyedrops and place him on Augmentin. Recommend follow-up with his eye doctor on Thursday or if his symptoms worsen he should go to the emergency room. Recommend he go to [place] or [facility] ER as they have Ophthalmology on-call. Supportive measures were discussed with the patient and they voiced understanding discharge instructions and agrees to treatment plan. Return precautions reviewed Differential Diagnosis Differential diagnosis: Likely corneal abrasion, conjunctivitis, acute iritis, hyphema, periorbital cellulitis, subconjunctival hemorrhage, glaucoma, corneal ulcer, ruptured globe and other (Internal/external stye) Discharge Plan Discharge Clinical Impression: Infected eye lid Patient Disposition: Home, Self-Care Condition: Stable Instructions: Antibiotic Form, Cellulitis (ED), Eyelid Swelling (ED) Additional Instructions: Practice good hand washing techniques Avoid touching eyes Instill eyedrops as prescribed-polymyxin Take Augmentin as prescribed May use warm moist washcloth compress every hour May take Tylenol/Motrin as needed for pain or fever Follow-up with your PCP or eye doctor in 3 days if symptoms persist or sooner if they worsen Go to the emergency room if you develop any fever that is not controlled by Tylenol or Motrin, loss of vision, eye pain, increase eye swelling,visual changes, headache, confusion, lethargy, weakness, chest pain, or shortness of breath. Recommend going to [place] or [facility] as [facility] does not have Ophthalmology on-call. Prescriptions: New polymyxin B sulf-trimethoprim 10,000 unit- 1 mg/mL drops 1 drp LEFT EYE Q3H 7 Days Qty: 10 0RF Rx Instructions: while awake; do not exceed 6 doses in 24 hours amoxicillin-pot clavulanate 875-125 mg tablet 1 tablet PO Q12H 10 Days Qty: 20 0RF No Action aspirin 325 mg tablet,delayed release (DR/EC) 325 mg PO DAILY metoprolol succinate 25 mg tablet extended release 24 hr 12.5 mg PO DAILY Qty: 15 5RF Follow-up/Referrals: Clay Ortega DO [Primary Care Provider] - Time of Disposition: 19:06 Quality NIHSS Nursing Documentation ED NIHSS nursing documentation: reviewed/agree
[2024-10-07 18:58] VITALS: BP 153/86; PULSE 61; RESP 18; TEMP 36.1; O2SAT 100
== END 2024-10-07 19:13 | disposition home or self-care (01) ==
PROVIDERS: Emergency Provider Nurse Practitioner Family; PCP Internal Medicine
DX: H01.9 Unspecified inflammation of eyelid (principal); I48.91 Unspecified atrial fibrillation; Z98.84 Bariatric surgery status; Z79.82 Long term (current) use of aspirin
CPT/HCPCS: 99213; G0463

== ENCOUNTER 2024-12-29 16:15 | Emergency (ER) | payer OTHER, SELFPAY ==
--- NOTE | 2024-12-29 16:26 | ED.URI ---
HPI - URI/Sore Throat General Chief Complaint: Upper Respiratory Infection Stated Complaint: DIZZY/SOB/PALPITATIONS/COUGH/NECK/BACK PAIN Time Seen by Provider: 12/29/24 16:28 Source: patient, RN notes reviewed and old records reviewed Mode of arrival: ambulatory Limitations: no limitations History of Present Illness HPI Narrative: 54 year old male presents to [facility] care with complaints of headache, weakness, body aches,cough,neck and back pain, weakness and some dizziness starting yesterday morning. Patient reports that he has felt flushed with chills and low grade temps. Patine states tht he has been taking DayQuil for his symptoms. MD elicited complaint: cough, sore throat and other (body aches neck and low back pain, headache and lightheaded) Onset (ago): day(s) (day 2 of symptoms.) Severity: moderate Description of mucous: clear Able to tolerate fluids by mouth: Yes Treatments prior to arrival: other (DayQuil) Related Data Home Medications ?Medication ?Instructions ?Recorded ?Confirmed ?Last Taken ?Type aspirin 325 mg tablet,delayed 325 mg PO DAILY 05/27/24 12/29/24 Unknown History release Allergies Allergy/AdvReac Type Severity Reaction Status Date / Time No Known Allergies Allergy Verified 12/29/24 16:26 Review of Systems Review of Systems: CONSTITUTIONAL: Reports malaise, chills, sweats, or fever. EYES: Denies visual changes, redness, or discharge. ENT: Reports rhinorrhea, congestion, sinus pain, no otalgia and positive for sore throat. CARDIOVASCULAR: Denies chest pain, palpitations, or edema. RESPIRATORY: Reports cough.? Denies dyspnea. GASTROINTESTINAL: Denies abdominal pain, nausea, vomiting, diarrhea SKIN: Denies rash or itching. MUSCULOSKELETAL: Reports myalgia states neck and back pain NEUROLOGIC: Reports headache. All systems reviewed & are unremarkable except as noted in HPI and below PMFSH Past Medical History Medical History Kidney stone Atrial fibrillation UTI (urinary tract infection) Allergies Surgical History Surgical History H/O gastric sleeve 10/16/2021 History of vasectomy History of hernia repair x2 [id number] Family History Family History Father Diabetes mellitus Mother Rheumatoid arthritis Grandparent Carcinoma of colon Grandparent Lung cancer Grandparent Leukemia Cerebrovascular accident Heart attack Sibling Diabetes mellitus Social History Social History Smoking status: Never smoker Alcohol intake: current Drinks per week: 2 Substance use: never Lack of Transportation: No Lack of Food: Sometimes True Current Housing: I Have Housing Concerned About Future Housing: No Difficulty Paying Gas/Electric Bills: No Difficulty Paying for Meds: No Currently Unemployed: No Education: Associate Degree Difficulty w/ Childcare or Family Care: No Comments At time of signature, agree with nursing past medical, surgical, social and family history. There is no relevant family history pertinent to the presenting complaint Exam Narrative: GENERAL: Ill-appearing, well-nourished, and in no acute distress. HEAD: Normocephalic EYES: PERRLA, conjunctivae clear ENT: Nares clear, turbinates edematous and erythematous, clear discharge sinus pressure. Mucous membranes moist. TM pearly yanes with dull light reflex bilaterally; no tragal tenderness. Oropharynx erythematous without lesions. Tonsils not enlarged and without exudate, no drooling, no hoarseness, no trismus, uvula midline.post nasal drainage NECK: Supple. No lymphadenopathy CHEST: Clear to auscultation, breath sounds equal. No wheezing, rhonchi, rales, or stridor. No respiratory distress, speaks in full sentences.cough noted SAO2 100% on room air HEART: Regular rate and rhythm. No murmur heard. SKIN: Warm, dry, no rash. NEURO: Alert and oriented x3. PSYCH: Normal mood and affect Course Course Emergency Course: Patient is aware of diagnosis, understands and agrees to treatment plan.? Anticipatory guidance given.? Patient agrees to follow-up as directed and is aware of reasons to seek care at the emergency department. Portions of this record may have been created with voice recognition software Level of Care: Express Care Visit Vital Signs Vital signs: Vital Signs Temperature 36.5 C 12/29/24 16:31 Pulse Rate 79 12/29/24 16:31 Respiratory Rate 16 12/29/24 16:31 Blood Pressure 158/100 H 12/29/24 16:31 Pulse Oximetry 100 12/29/24 16:31 Temperature 36.5 C 12/29/24 16:31 Pulse Rate 79 12/29/24 16:31 Respiratory Rate 16 12/29/24 16:31 Blood Pressure 158/100 H 12/29/24 16:31 Pulse Oximetry 100 12/29/24 16:31 Reviewed MDM - URI/Sore Throat MDM Narrative Medical decision making narrative: Differential diagnosis considered: Mendoza virus, strep pharyngitis, allergic rhinitis, upper respiratory tract infection, sinusitis, rhinosinusitis, nasopharyngitis. viral pharyngitis, otitis media, otitis externa, pneumonia, bronchitis, viral cough syndrome, viral syndrome, and influenza.? Exam findings show no acute concerns or changes; patient is non-toxic appearing and is in no distress.? Patient is appropriate for outpatient treatment and follow-up. Differential Diagnosis Differential diagnosis: Likely upper respiratory infection, sinusitis, viral infection, influenza and other (COVID cough) Medical Records Attestation: I reviewed the patient's medical records. Lab Data Attestation: I reviewed the patient's lab results. Lab results narrative: Influenza A positive, Influenza B negative, COVID antigen negative Labs: Lab Results 12/29/24 Range/Units 16:55 POC Influenza A Ag Positive (Negative) POC Influenza B Ag Negative (Negative) POC SARS CoV-2 Ag Negative (Negative) Critical Care Time Critical Care Time Critical Care Time: No Discharge Plan Discharge Clinical Impression: Influenza A Patient Disposition: Home, Self-Care Condition: Stable Instructions: Influenza (ED) Additional Instructions: Increase fluids especially juices and water Over the-counter cough and cold medicine of your choice for your symptoms such as Delsym or Robitussin Tylenol for any fever pain check temperature every 4 hours can have up to 4000 mg of Tylenol daily but make sure if you are taking combo medication yo need to include the content of Tylenol Zyrtec Claritin or Ashley daily include Coricidin brand decongestant Mucinex for congestion make sure you are drinking plenty of water while your on this medication heat to the face 20-30 minutes 4-6 times a day for pain Salt water gargles, throat lozenges or throat sprays as desired If your symptoms persist, change or worsen significantly before you can contact your personal physician then please, without delay, go to the emergency department for further evaluation. Follow-up with PCP in 7-10 days or sooner if needed Follow up with PCP soon in regards to your blood pressure which is elevated above threshold for referral. Blood pressure above 120/80 may indicate pre-hypertension. 158/100 Patient Language: Uzbek Prescriptions: No Action aspirin 325 mg tablet,delayed release (DR/EC) 325 mg PO DAILY metoprolol succinate 25 mg tablet extended release 24 hr 12.5 mg PO DAILY Qty: 15 5RF Follow-up/Referrals: Clay Ortega, DO [Primary Care Provider] - Stand Alone Forms: Work/School Release IP Time of Disposition: 16:43 Quality Huy Coma Scale Eyes: Open Verbal: Oriented and Alert Motor: Follows Commands [place] Coma Total Score: 15
[2024-12-29 16:31] VITALS: BP 158/100; PULSE 79; RESP 16; TEMP 36.5; O2SAT 100
[2024-12-29 16:58] LABS: EDCOVIDSCREEN Negative (Negative); EDINFLUASCREEN Positive (Negative); EDINFLUBSCREEN Negative (Negative)
== END 2024-12-29 16:53 | disposition home or self-care (01) ==
PROVIDERS: Emergency Provider Registered Nurse; PCP Internal Medicine
DX: J10.1 Influenza due to other identified influenza virus with other respiratory manifestations (principal); Z20.822 Contact with and (suspected) exposure to COVID-19; I48.91 Unspecified atrial fibrillation; Z98.84 Bariatric surgery status; Z98.52 Vasectomy status
CPT/HCPCS: 87426; 87804; 99212; G0463

== ENCOUNTER 2025-01-18 14:32 | Outpatient (CLI) | payer OTHER, SELFPAY ==
--- NOTE | ~2025-01-18 | XR_ITS ---
3 VIEWS LUMBAR SPINE Ordering provider: Ketty Ocasio NP History: . M54.50 - Low back pain, unspecified . Comparison: None. FINDINGS: VERTEBRAL BODIES: No visible fracture or subluxation. Degenerative changes of the spine. DISK SPACES: Narrowing of the disc L4-L5 and L5-S1.. Degenerative disease at the level of L3-L4, L4-L 5 and L5-S1. SOFT TISSUES: Normal. IMPRESSION: No acute osseous abnormality lumbar spine. Degenerative disc disease at the level of L4-L5 and L5-S1. Reviewed, dictated and finalized at location A.
== END 2025-01-18 14:33 | disposition home or self-care (01) ==
LOC: GOSHIMG 14:33
PROVIDERS: PCP Nurse Practitioner; Visit Provider Nurse Practitioner
DX: M51.369 Other intervertebral disc degeneration, lumbar region without mention of lumbar back pain or lower extremity pain (principal); M51.379 Other intervertebral disc degeneration, lumbosacral region without mention of lumbar back pain or lower extremity pain
CPT/HCPCS: 72100

== ENCOUNTER 2025-01-20 14:27 | Outpatient (RCR) | payer OTHER, SELFPAY ==
--- NOTE | 2025-01-20 15:46 | OPREHPOC ---
Outpatient Therapy Plan of Care This is a Multidisciplinary Plan of Care that may contain components documented by all disciplines (PT, OT, and ST.) PT Problem 1 PT Problem #1 Knowledge Deficit PT Goal 1 Goal / Goal Update [place] with HEP Target Visit 4 PT Goal 2 Goal / Goal Update Report 75% reduction in numbness and tingling symptoms Target Visit 8 PT Problem 2 PT Problem #2 Impaired Flexibility PT Goal 1 Goal / Goal Update Demonstrate -20 degrees [place] hamstring restriction in 90/90 test Target Visit 8 PT Problem 3 PT Problem #3 Impaired Gait PT Goal 1 Goal / Goal Update Ambulate with even stride length bilaterally with absence of compensated Trendelenburg Target Visit 8
--- NOTE | 2025-01-20 15:46 | PTOPEVAL1 ---
Assessment and note entered by Pb Gonzalez, PT Evaluation Information Assessment Status Evaluation Diagnosis M54.16 ICD-10 Condition Codes (PT) Radiculopathy, lumbar region M54.16 Onset 01/13/25 Subjective Information Feels that he had an initial pain about a week ago that slowly onset for him. [facility] and the trip really affected him. He is not having pain at this point but he is struggling with a lot of numbness all the way down to his left foot. Foot is still asleep. He is unsure if anything is making it worse or better. He had imaging this week. Reported Pain Level Pain Score 0: Self Report Assessment PT Clinical Summary Patient presents with signs and symptoms consistent with sciatica and possible left hip impingement. Patient had discomfort with nerve flossing activity with poor rotation balance on L hip. Patient will benefit form skilled therapy to address these deficits and improve functional hip mobility and strengthening for jail functional progress. Plan of Care Interventions Gait Training,Manual Therapy,Neuro Re-education, Therapeutic Activities,Therapeutic Exercise PT Services Indicated Yes Treatment Frequency and 2x/week for 8 visits Duration These treatments will address the objective and functional deficits as defined above. The patient will be advanced safely and appropriately in order for the patient to progress towards his/her prior level of function. Additional exercises will be introduced and as well as a comprehensive home exercise program upon discharge, if needed, ?to ensure carryover of functional gains achieved in the clinic. This treatment plan has been reviewed and agreement upon by the patient.
--- NOTE | 2025-02-21 07:57 | PTOPDC ---
Assessment and note entered by Pb Gonzalez, PT Evaluation Information Assessment Status Discharge - Pt Not Present Diagnosis M54.16 ICD-10 Condition Codes (PT) Radiculopathy, lumbar region M54.16 Onset 01/13/25 Subjective Information Patient has not made contact with clinic regarding continuation of therapy or establishment of therapy POC. Amaury and left message on 01/25, 02/05, and 02/14 with no reply from patient. Assessment PT Clinical Summary Patient to be discharged from skilled therapy at this time due to lack of contact with clinic. We have made 3 separate attempts to contact him with no response. Please refer to evaluation for discharge status. Plan of Care PT Services Indicated Yes
== END 2025-02-21 08:50 | disposition home or self-care (01) ==
LOC: ANHGOSHPT 14:27
PROVIDERS: PCP Nurse Practitioner; Visit Provider Nurse Practitioner
DX: M54.16 Radiculopathy, lumbar region (principal)
CPT/HCPCS: 97110; 97140; 97161

== ENCOUNTER 2025-08-21 08:09 | Outpatient (CLI) | payer OTHER, SELFPAY ==
[2025-08-21 12:59] LABS: Hematocrit 44.0 % (42.0-52.0); Hemoglobin 14.5 g/dL (14.0-18.0); Immature Granulocyte Percent A 0.5 % (0-0.5); Lymphocytes Absolute Auto 1.73 K/mm3 (0.9-3.2); Mean Corpuscular HGB Conc 33.0 g/dl (32-36); Mean Corpuscular Hemoglobin 31.0 pg (26-34); Mean Corpuscular Volume 94.0 fl (80-100); Nucleated Red Blood Cells Absolute Auto 0.000 K/mm3 (0.0-0.012); Nucleated Red Blood Cells Perc 0.0 % (0.0-0.2); Platelet Count Result 235 k/mm3 (150-375); Red Blood Count 4.68 M/mm3 (4.6-6.20); White Blood Count 6.6 K/mm3 (4.5-10.0)
[2025-08-21 13:13] LABS: Alanine Aminotransferase 19 U/L (6-50); Albumin Level 4.2 g/dL (3.5-5.1); Alkaline Phosphatase 92 U/L (38-126); Anion Gap 7 mmol/L (4-12); Aspartate Amino Transferase 52 U/L (17-59); Bilirubin,Total 0.9 mg/dL (0.2-1.3); Blood Urea Nitrogen 17 mg/dL (9-20); Calcium 9.3 mg/dL (8.4-10.2); Carbon Dioxide 29 mmol/L (22-30); Chloride 104 mmol/L (98-107); Cholesterol 156 mg/dL (0-200); Estimated Glomerular Filt Rate > 60; Glucose 98 mg/dL (65-110); HDL Direct 54 mg/dL; Potassium 4.7 mmol/L (3.4-5.0); Sodium 140 mmol/L (137-145); Total Protein 7.5 g/dL (6.3-8.2); Triglycerides 99 mg/dL (<150)
[2025-08-21 13:49] LABS: Prostate Specific Antigen 0.3 ng/mL (< OR = 4.0)
== END 2025-08-21 08:10 | disposition home or self-care (01) ==
LOC: ANHGOSHLAB 08:11
PROVIDERS: PCP Internal Medicine; Visit Provider Nurse Practitioner
DX: Z13.220 Encounter for screening for lipoid disorders (principal); Z13.29 Encounter for screening for other suspected endocrine disorder; Z12.5 Encounter for screening for malignant neoplasm of prostate
CPT/HCPCS: 36415; 80053; 80061; 84153; 85025; G0103